=== PATIENT | female | born 1935 | race Two or more races ===

== ENCOUNTER → 2023-11-26 | Outpatient (CLI) | payer MEDICAID, OTHER ==
[~2023-11-26] MED LIST: HYDR-4902 PO; MECL1TAB42 PO; TRAM50TA2 PO
[2023-11-26 09:05] LABS: Basophils # (auto) 0 10 ^3/uL (0-0.2); Basophils % (auto) 0.7 % (0.0-2.0); Eosinophils # (auto) 0 10 ^3/uL (0-0.8); Eosinophils % (auto) 0.7 % (0.0-7.0); Hematocrit 40.6 % (36.0-46.0); Hemoglobin 13.5 g/dL (12.2-16.2); Lymphocytes # (auto) 1.3 10 ^3/uL (0.4-5.4); Lymphocytes % (auto) 20.2 % (10.0-50.0); Mean Corpuscular Hemoglobin 30.6 pg (28.0-32.0); Mean Corpuscular Hgb Conc. 33.3 g/dL (32.0-36.0); Mean Corpuscular Volume 92.1 fL (80.0-100.0); Monocytes # (auto) 0.4 10 ^3/uL (0-1.3); Monocytes % (auto) 6.6 % (0.0-12.0); Neutrophils # (auto) 4.6 10 ^3/uL (1.6-8.6); Neutrophils % (auto) 71.8 % (37.0-80.0); Red Blood Cells 4.41 10^6/uL (4.0-5.20); Red Cell Distribution Width 13.8 % (11.8-14.3); White Blood Cell 6.4 10^3/uL (4.4-10.8)
[2023-11-26 09:33] LABS: Urine Blood Negative /uL (Negative); Urine Clarity HAZY (Clear); Urine Color Yellow (Yellow); Urine Protein, UAD 1+ (Negative); Urine Specific Gravity 1.024 (1.001-1.035)
[2023-11-26 09:42] LABS: Pre Albumin 26.5 md/dL (10.0-40.0)
[2023-11-26 13:33] LABS: Magnesium 2.2 mg/dL (1.6-2.6)
[2023-11-26 13:45] LABS: Free T4 (Free Thyroxine) 1.45 ng/dL (0.89-1.76); T3 Total 1.13 ng/mL (0.60-1.81)
== END | disposition home or self-care (01) ==
LOC: LAB 08:36
PROVIDERS: ATTEND Nurse Practitioner Gerontology
DX: Z00.01 Encounter for general adult medical examination with abnormal findings (principal); Z29.9 Encounter for prophylactic measures, unspecified; Z13.1 Encounter for screening for diabetes mellitus; E78.5 Hyperlipidemia, unspecified; I10 Essential (primary) hypertension; E07.9 Disorder of thyroid, unspecified; N39.0 Urinary tract infection, site not specified
CPT/HCPCS: 36415; 80061; 81003; 82040; 83036; 83735; 84439; 84443; 84480; 85025; 87086